=== PATIENT | female | born 1985 | race African-American/Black ===

== ENCOUNTER → 2018-11-23 | Outpatient (CLI) | payer BC ==
[~2018-11-23] MED LIST: CONTRAST GIVEN. MC PRN; IOHEXOL 240 MG/ML 50ML VIAL. PO ONE; IOHEXOL 300 MG/ML 100ML VIAL. IV ONE
--- NOTE | 2018-11-23 11:36 | RAD ---
EXAM: CT Abdomen and Pelvis with IV contrast CLINICAL HISTORY: Complex mass right adnexa/uterus.. COMPARISON: none TECHNIQUE: Helical CT of the abdomen and pelvis was performed following the administration of intravenous contrast. Axial, coronal and sagittal reformatted images were generated. PQRS compliance statement - One or more of the following individualized dose reduction techniques were utilized for this study: 1. Automated exposure control 2. Adjustment of the mA and/or kV according to patient size 3. Use of iterative reconstruction technique FINDINGS: Lower chest: Lung bases are clear. Abdomen and Pelvis: Focal low-attenuation along the falciform ligament likely focal fatty infiltration. Gallbladder is normal. Spleen is unremarkable. Adrenal glands are normal. Symmetric nephrograms. No focal renal lesion. No hydronephrosis. Bladder is unremarkable. Moderate colonic stool content is seen. Appendix is normal. No small bowel dilatation. Posterior to the right adnexa there is a multi loculated cystic structure measuring approximately 4.5 x 2.8 cm, somewhat tubular in morphology. Moderate associated fat infiltration is seen. No abdominal pelvic ascites. No abdominal or pelvic lymphadenopathy. Bones: Degenerative changes of spine are seen. No aggressive osseous lesion. IMPRESSION: 1. Multiloculated cystic structure at the right adnexa measures proximally 4.5 x 2.8 cm. Although this may represent adnexal mass or cystic structure including abscess. Evaluation is limited by CT and ultrasound would provide additional details. If further imaging is clinically required, MRI would provide additional details. Electronically signed by: Sammy Sherwood MD (11/23/2018 11:32 AM) [facility]
== END | disposition home or self-care (01) ==
LOC: CT 09:38
PROVIDERS: ATTEND Obstetrics & Gynecology
DX: K66.8 Other specified disorders of peritoneum (principal); J45.909 Unspecified asthma, uncomplicated
CPT/HCPCS: 74177